=== PATIENT | male | born 1960 | race Caucasian/White ===

== ENCOUNTER 2020-09-20 07:26 | Day surgery (SDC) | payer OTHER ==
[~2020-09-20 07:26] MED LIST: Lactated Ringers 1,000 ML IV SCH
[2020-09-20] MEDS ORDERED: Propofol 200 MG/20 ML SDV ONE ×2 (07:59→09:31)
[2020-09-20] MEDS ORDERED: fentaNYL 100 MCG/2 ML SDV ONE (07:59)
[2020-09-20] MEDS ORDERED: Potassium Chloride Riders 0 ML ONE (09:30)
--- NOTE | 2020-09-20 13:50 | OR ---
DATE OF SURGERY: 09/20/2020. REFERRING PROVIDER: Emelina Means MD PRE-OPERATIVE DIAGNOSIS: History of colon polyps. Last colonoscopy was 2016 in [place]. He had also had 1 in 2010, both with mild adenomatous polyps. There is a positive family history of colon cancer in maternal aunt. POST-OPERATIVE DIAGNOSES: 1. Two small polyps removed using cold forceps. a. 4 mm polyp at 25 cm. b. 2 mm rectal polyp. 2. Mild inflammation of the cecum. Cold biopsy x2 bites taken. 3. Mild inflammation of the rectal area. Cold biopsy x2 bites taken. 4. Normal-appearing distal ileum. Cold biopsy x2 bites taken. 5. Otherwise, normal-appearing colonic mucosa between the cecum and the rectal areas. Random biopsies taken. PROCEDURE: Colonoscopy with polypectomy x2 using cold forceps. Cold biopsies taken from 4 sites as noted above. SURGEON: Denys Mario M.D. ANESTHESIA: Monitored anesthesia care. BOWEL PREP: Good. Did require a moderate amount of irrigation and suctioning. Stephen is a 60-year-old male who was brought to the endoscopy suite after discussing risks and benefits of the procedure. Informed consent was obtained for conscious sedation and colonoscopy with or without biopsy and/or polypectomy. We also discussed possibility of missed lesions. Pre-procedure exam was unremarkable. IV, oxygen, and monitors were placed. The patient was placed in the left lateral decubitus position. Sedation was administered and a digital rectal exam was performed and unremarkable. Colonoscope was passed into the rectum and slowly advanced all the way to the cecum. Cecum was viewed and photographed. There was some mild inflammation of the cecum, so cold biopsy x2 bites taken. Ileocecal valve was intubated and distal ileum was normal in appearance. Cold biopsy x2 bites taken from there as well. The colonoscope was slowly withdrawn and the mucosa was closed observed in a direct circumferential manner. The ascending colon was unremarkable. The transverse colon was unremarkable. The descending colon was unremarkable. The sigmoid colon was unremarkable. Random biopsies were taken from these normal-appearing areas of the colon. There was a 4 mm polyp in the sigmoid colon. This was removed using cold forceps on the way in. Rectal mucosa did reveal some mild inflammation. Cold biopsy x2 bites were taken. There was the 2 mm rectal polyp removed using cold forceps. Retroflexion was performed and rectal mucosa showed the mild inflammation. Scope was removed. The patient tolerated the procedure well. The patient was monitored until that baseline status. Discharge instructions were reviewed and the patient was discharged in good condition. COMPLICATIONS: None. TOTAL TIME: 35 minutes. ESTIMATED BLOOD LOSS: 1 to 2 mL. RECOMMENDATIONS/FOLLOW-UP: We will await results of path report to determine ideal followup interval. I would like to kindly thank Dr. Means for this referral. DMB: 09/20/2020 10:11:12 MODL: 09/20/2020 11:00:20 /[id number]
== END 2020-09-20 11:00 | disposition home or self-care (01) ==
LOC: VM.SDS 07:26
PROVIDERS: ATTEND Family Medicine
DX: Z12.11 Encounter for screening for malignant neoplasm of colon (principal); D12.6 Benign neoplasm of colon, unspecified; K62.1 Rectal polyp; I10 Essential (primary) hypertension; E78.00 Pure hypercholesterolemia, unspecified; M16.11 Unilateral primary osteoarthritis, right hip; G89.29 Other chronic pain; L60.0 Ingrowing nail; E66.9 Obesity, unspecified; Z98.890 Other specified postprocedural states; Z79.899 Other long term (current) drug therapy; Z79.82 Long term (current) use of aspirin; Z88.8 Allergy status to other drugs, medicaments and biological substances; Z68.39 Body mass index [BMI] 39.0-39.9, adult; Z80.0 Family history of malignant neoplasm of digestive organs
CPT/HCPCS: 00811; J2704; J3010; J3480; J7120